=== PATIENT | male | born 1955 | race Caucasian/White ===

== ENCOUNTER 2017-11-27 08:27 | Observation (INO) | payer OTHER ==
[~2017-11-27] VITALS: Wt 99.8 kg
[~2017-11-27 08:27] MED LIST: CHONDROITIN; CYAN500 PO; Garlic1000 MG PO; MELA3; MELO7.5 PO; MILK THISTLE PO; ROSU10TA; Vitamin C100 M1 PO; ZESTORETIC 20-121 EA PO
[2017-11-28] MEDS ORDERED: ASPI325EC PO (13:52)
[2017-11-28] MEDS ORDERED: OXYC5 PO (13:53)
[2017-11-29 04:32] LABS: BASOPHILS PERCENT AUTO 0 % (0-2); EOSINOPHILS PERCENT AUTO 0 % (0-6); Hematocrit 31.8 % (37.0-53.0); Hemoglobin 10.7 g/dL (13.5-17.5); IMMATURE GRAN PERCENT AUTO 1 % (0-1); LYMPHOCYTES ABSOLUTE AUTO 0.87 K/mm3 (0.84-5.20); LYMPHOCYTES PERCENT AUTO 7 % (21-46); MONOCYTES ABSOLUTE AUTO 0.94 K/mm3 (0.16-1.47); MONOCYTES PERCENT AUTO 7 % (4-13); Mean Corpuscular HGB 30.6 pg (26.0-34.0); Mean Corpuscular HGB Conc 33.6 g/dL (31.5-36.5); Mean Platelet Volume 9.8 fL (9.1-12.4); NEUTROPHILS ABSOLUTE AUTO 11.17 K/mm3 (1.96-9.15); NEUTROPHILS PERCENT AUTO 85 % (41-73); Platelet Count 200 K/mm3 (150-400); RDW Coefficient Variation 12.3 % (11.7-14.2); RDW Standard Deviation 40.8 fL (35.1-46.3); White Blood Cell Count 13.08 K/mm3 (4.00-11.30)
[2017-11-29 04:34] LABS: Mean Corpuscular Volume 91 fL (80-100)
[2017-11-29 04:55] LABS: Anion Gap 7 mmol/L (6-16); Blood Urea Nitrogen 18 mg/dL (8-24); Bun/Creatinine Ratio 20.4 (12.0-20.0); CO2, Blood 26 mmol/L (21-32); Calcium, Blood 8.3 mg/dL (8.5-10.1); Chloride, Blood 105 mmol/L (98-108); Creatinine, Blood 0.88 mg/dL (0.60-1.20); Glomerular Filtration Rate >60 (60-); Glucose, Blood 155 mg/dL (70-99); Magnesium, Blood 2.1 mg/dL (1.6-2.4); Potassium, Blood 4.5 mmol/L (3.5-5.5); Sodium, Blood 138 mmol/L (136-145)
[2017-11-29] MEDS ORDERED: Percocet 5-3251 EACH PO (08:16)
[2017-11-29] MEDS ORDERED: Aspirin EC325 MG PO (08:17)
[2018-03-13] MEDS ORDERED: Vitamin B Comple1 EA PO (09:57)
[2018-03-13] MEDS ORDERED: TURMERIC500 M2 PO (09:58)
[2018-03-13] MEDS ORDERED: GLUCOSAMINE CH1 EAC3 PO (09:58)
[2018-03-13] MEDS ORDERED: Garlic1000 MG PO (09:59)
[2018-03-13] MEDS ORDERED: ACET500 PO (09:59)
== END 2017-11-29 13:51 | disposition home or self-care (01) ==
LOC: SURS 11-28 08:48 → PRE IP 11-28 08:48 → SURS 11-28 08:48 → PRE IP 11-28 10:30 → SURS 11-28 14:37
PROVIDERS: Orthopaedic Surgery
PROC: 0SRD0J9 Replacement of Left Knee Joint with Synthetic Substitute, Cemented, Open Approach (ICD-10-PCS; principal; 2017-11-28 10:30)
DX: M17.12 Unilateral primary osteoarthritis, left knee (principal); Z01.812 Encounter for preprocedural laboratory examination; Z88.5 Allergy status to narcotic agent; Z88.8 Allergy status to other drugs, medicaments and biological substances; Z98.890 Other specified postprocedural states
CPT/HCPCS: 36415; 73560-LT; 80048; 83735; 85025; 86850; 86900; 86901; 88300; 96374; 96375; 96376; 97110; 97116; 97161; 97530; C1713; C1776; G0378; G8978; G8979; J0171; J0690; J0735; J1885; J2250; J2405; J2795; J3010; J7120

== ENCOUNTER → 2018-03-06 | Outpatient (CLI) | payer OTHER ==
[~2018-03-06] MED LIST changes: +ASPI325EC PO; +Aspirin EC325 MG PO; +OXYC5 PO; +Percocet 5-3251 EACH PO
[2018-03-06 13:51] LABS: Adenovirus F 40/41 Not Detected (NOT DETECT); Astrovirus Not Detected (NOT DETECT); Campylobacter Sp Not Detected (NOT DETECT); Cryptosporidium Not Detected (NOT DETECT); Cyclospora Cayetanensis Not Detected (NOT DETECT); E. Coli O157 Not Detected (NOT DETECT); Entamoeba Histolytica Not Detected (NOT DETECT); Enteroaggregative E. coli-EAEC Not Detected (NOT DETECT); Enteropathogenic E. coli-EPEC Not Detected (NOT DETECT); Enterotoxigenic E. coli-ETEC Not Detected (NOT DETECT); Giardia Lamblia Not Detected (NOT DETECT); Norovirus GI/GII Not Detected (NOT DETECT); Plesiomonas Shigelloides Not Detected (NOT DETECT); Rotavirus A Not Detected (NOT DETECT); Salmonella Sp Not Detected (NOT DETECT); Sapovirus Not Detected (NOT DETECT); Shiga Toxin-prod E. coli-STEC Not Detected (NOT DETECT); Shigella/Enteroin E. coli-EIEC Not Detected (NOT DETECT); Vibrio Cholerae Not Detected (NOT DETECT); Vibrio Sp Not Detected (NOT DETECT); Yersinia Enterocolitica Not Detected (NOT DETECT)
== END | disposition home or self-care (01) ==
LOC: OLS 09:30 → LAB SHORT 09:30
PROVIDERS: Family Medicine
DX: A08.4 Viral intestinal infection, unspecified (principal)
CPT/HCPCS: 87507

== ENCOUNTER 2018-04-03 10:10 | Day surgery (SDC) | payer OTHER ==
[~2018-04-03] VITALS: Ht 170.2 cm; Wt 102.1 kg
[~2018-04-03 10:10] MED LIST changes: +ACET500 PO; +GLUCOSAMINE CH1 EAC3 PO; +TURMERIC500 M2 PO; +Vitamin B Comple1 EA PO
[2018-04-03] MEDS ORDERED: ASPI325EC PO (14:18)
[2018-04-03] MEDS ORDERED: PROM25 PO (14:19)
[2018-04-03] MEDS ORDERED: Percocet 5-3251 EACH PO (14:19)
[2018-04-04 05:01] LABS: BASOPHILS PERCENT AUTO 0 % (0-2); EOSINOPHILS PERCENT AUTO 0 % (0-6); Hematocrit 32.5 % (37.0-53.0); Hemoglobin 10.7 g/dL (13.5-17.5); IMMATURE GRAN ABSOLUTE AUTO 0.09 K/mm3 (0.00-0.10); IMMATURE GRAN PERCENT AUTO 1 % (0-1); LYMPHOCYTES ABSOLUTE AUTO 0.98 K/mm3 (0.84-5.20); LYMPHOCYTES PERCENT AUTO 7 % (21-46); MONOCYTES ABSOLUTE AUTO 0.99 K/mm3 (0.16-1.47); MONOCYTES PERCENT AUTO 7 % (4-13); Mean Corpuscular HGB 29.4 pg (26.0-34.0); Mean Corpuscular HGB Conc 32.9 g/dL (31.5-36.5); Mean Corpuscular Volume 89 fL (80-100); Mean Platelet Volume 9.7 fL (9.1-12.4); NEUTROPHILS PERCENT AUTO 85 % (41-73); Platelet Count 177 K/mm3 (150-400); RDW Coefficient Variation 13.2 % (11.7-14.2); RDW Standard Deviation 43.6 fL (35.1-46.3); Red Blood Cell Count 3.64 M/mm3 (4.30-5.90); White Blood Cell Count 13.66 K/mm3 (4.00-11.30)
[2018-04-04 05:22] LABS: Anion Gap 9 mmol/L (6-16); Blood Urea Nitrogen 18 mg/dL (8-24); Bun/Creatinine Ratio 20.7 (12.0-20.0); CO2, Blood 23 mmol/L (21-32); Chloride, Blood 106 mmol/L (98-108); Creatinine, Blood 0.87 mg/dL (0.60-1.20); Glomerular Filtration Rate >60 (60-); Glucose, Blood 225 mg/dL (70-99); Magnesium, Blood 2.2 mg/dL (1.6-2.4); Potassium, Blood 4.3 mmol/L (3.5-5.5); Sodium, Blood 138 mmol/L (136-145)
== END 2018-04-04 11:41 | disposition home or self-care (01) ==
LOC: SURS 10:10 → PRE IP 10:10 → SURS 10:10 → ORSCMMR 10:10 → EDSTATUS 12:30 → PRE IP 12:30 → SURS 14:54 → ORSCMMR 04-04 11:41 → SURS 04-04 11:41
PROVIDERS: Orthopaedic Surgery
PROC: 0SRC0J9 Replacement of Right Knee Joint with Synthetic Substitute, Cemented, Open Approach (ICD-10-PCS; principal; 2018-04-03 12:30)
DX: M17.11 Unilateral primary osteoarthritis, right knee (principal); I10 Essential (primary) hypertension; E66.01 Morbid (severe) obesity due to excess calories; Z68.35 Body mass index [BMI] 35.0-35.9, adult; Z79.899 Other long term (current) drug therapy
CPT/HCPCS: 36415; 73560-RT; 80048; 83735; 85025; 86850; 86900; 86901; 88300; 97110; 97116; 97161; 97530; C1713; C1776; G8978; G8979; J0171; J0690; J0735; J1100; J1885; J2250; J2405; J2795; J3010; J3370; J7120

== ENCOUNTER 2023-06-21 06:40 | Day surgery (SDC) | payer OTHER | END 2023-06-21 12:00 | disposition home or self-care (01) | LOC: ORSCMMR 06:40 | PROC: 0YU60JZ Supplement Left Inguinal Region with Synthetic Substitute, Open Approach (ICD-10-PCS; principal; 2023-06-21) | PROC: 0WUF0JZ Supplement Abdominal Wall with Synthetic Substitute, Open Approach (ICD-10-PCS; principal; 2023-06-21) | DX: K40.90 Unilateral inguinal hernia, without obstruction or gangrene, not specified as recurrent (principal); K42.0 Umbilical hernia with obstruction, without gangrene; I10 Essential (primary) hypertension; E11.9 Type 2 diabetes mellitus without complications; E66.9 Obesity, unspecified; Z68.34 Body mass index [BMI] 34.0-34.9, adult; Z79.84 Long term (current) use of oral hypoglycemic drugs; Z79.899 Other long term (current) drug therapy ==

== ENCOUNTER 2024-04-17 08:16 | Day surgery (SDC) | payer OTHER ==
[~2024-04-17 08:16] MED LIST changes: +ATOR20 PO; +COLCHICINE0.6 MG PO; +ERGO400 PO; +K-RIGHT SOFTGE1 EACH PO; +METF500 PO; +Milk Thistle175 M1 PO; +PROM25 PO
[2024-04-17] MEDS ORDERED: Lidocaine HCl 4% Cream 5 GM ONE (13:13)
== END 2024-04-18 22:58 | disposition home or self-care (01) ==
LOC: WOUND 08:16
DX: L97.822 Non-pressure chronic ulcer of other part of left lower leg with fat layer exposed (principal); I87.2 Venous insufficiency (chronic) (peripheral); I73.9 Peripheral vascular disease, unspecified; I10 Essential (primary) hypertension; Z88.5 Allergy status to narcotic agent
CPT/HCPCS: A6213; A9270; G0463

== ENCOUNTER 2024-05-07 03:55 | Day surgery (SDC) | payer OTHER ==
[2024-05-07] MEDS ORDERED: Lidocaine HCl 4% Cream 5 GM ONE (10:35)
== END 2024-05-07 22:39 | disposition home or self-care (01) ==
LOC: WOUND 03:55
DX: L97.822 Non-pressure chronic ulcer of other part of left lower leg with fat layer exposed (principal); I87.2 Venous insufficiency (chronic) (peripheral); E11.51 Type 2 diabetes mellitus with diabetic peripheral angiopathy without gangrene; I10 Essential (primary) hypertension
CPT/HCPCS: A6213; A9270; G0463

== ENCOUNTER 2024-05-09 03:08 | Day surgery (SDC) | payer OTHER ==
[2024-05-09] MEDS ORDERED: Lidocaine HCl 4% Cream 5 GM ONE (07:47)
== END 2024-05-09 23:07 | disposition home or self-care (01) ==
LOC: WOUND 03:08
DX: L97.822 Non-pressure chronic ulcer of other part of left lower leg with fat layer exposed (principal); I87.2 Venous insufficiency (chronic) (peripheral); I73.9 Peripheral vascular disease, unspecified
CPT/HCPCS: A6213; A9270; G0463

== ENCOUNTER 2024-05-12 02:31 | Day surgery (SDC) | payer OTHER | END 2024-05-12 23:18 | disposition home or self-care (01) | LOC: WOUND 02:31 | DX: L97.822 Non-pressure chronic ulcer of other part of left lower leg with fat layer exposed (principal); I87.2 Venous insufficiency (chronic) (peripheral); I73.9 Peripheral vascular disease, unspecified | CPT/HCPCS: A6213; G0463 ==

== ENCOUNTER 2024-05-14 03:13 | Day surgery (SDC) | payer OTHER ==
[2024-05-14] MEDS ORDERED: Lidocaine HCl 4% Cream 5 GM ONE (09:07)
== END 2024-05-14 23:00 | disposition home or self-care (01) ==
LOC: WOUND 03:13
DX: L97.822 Non-pressure chronic ulcer of other part of left lower leg with fat layer exposed (principal); I87.2 Venous insufficiency (chronic) (peripheral); I73.9 Peripheral vascular disease, unspecified
CPT/HCPCS: A9270; G0463

== ENCOUNTER 2024-05-21 02:16 | Day surgery (SDC) | payer OTHER | END 2024-05-21 22:47 | disposition home or self-care (01) | LOC: WOUND 02:16 | DX: S81.802D Unspecified open wound, left lower leg, subsequent encounter (principal); I10 Essential (primary) hypertension; E11.622 Type 2 diabetes mellitus with other skin ulcer; L97.822 Non-pressure chronic ulcer of other part of left lower leg with fat layer exposed; I87.2 Venous insufficiency (chronic) (peripheral); E11.51 Type 2 diabetes mellitus with diabetic peripheral angiopathy without gangrene; X58.XXXD Exposure to other specified factors, subsequent encounter | CPT/HCPCS: A6213; G0463 ==

== ENCOUNTER 2024-06-04 01:21 | Day surgery (SDC) | payer OTHER ==
[2024-06-04] MEDS ORDERED: Silver Nitr/Potassium Nitrate 1 EA APPL ONE (10:51)
== END 2024-06-05 05:10 | disposition home or self-care (01) ==
LOC: WOUND 01:21
DX: L97.822 Non-pressure chronic ulcer of other part of left lower leg with fat layer exposed (principal); I87.2 Venous insufficiency (chronic) (peripheral); E11.51 Type 2 diabetes mellitus with diabetic peripheral angiopathy without gangrene
CPT/HCPCS: A6213; A9270

== ENCOUNTER 2024-06-11 02:39 | Day surgery (SDC) | payer OTHER | END 2024-06-11 22:53 | disposition home or self-care (01) | LOC: WOUND 02:39 | DX: L97.822 Non-pressure chronic ulcer of other part of left lower leg with fat layer exposed (principal); I87.2 Venous insufficiency (chronic) (peripheral) | CPT/HCPCS: G0463 ==

== ENCOUNTER → 2025-08-11 | Outpatient (CLI) | payer OTHER | LOC: LAB SHORT 07:37 → LAB 07:37 | DX: B35.1 Tinea unguium (principal); L60.2 Onychogryphosis | CPT/HCPCS: 88305; 88312 ==